=== PATIENT | female | born 1965 | race Two or more races ===

== ENCOUNTER 2016-08-21 17:32 | Emergency (ER) | payer SELFPAY ==
--- NOTE | 2016-08-21 17:54 | ER Document Report ---
ED Medical Screen (RME) - General Chief Complaint: Headache Stated Complaint: HEADACHE Time seen by provider: 17:52 Mode of Arrival: Ambulatory Information source: Patient Notes: 89-year-old female woke up with a throbbing pounding headache in the front and on the top of her head and week ago when she was in [place]. It has persisted and now was in [place] but the headache is now 3/5 because she's been taking aspirin. This is not a migraine. He suspects that this headache is due to high blood pressure which she has had a history of but she is no longer taking medicine. No Paresthesias or weakness. Physical Exam - Vital signs Vitals: Temp Pulse Resp BP Pulse Ox 98.4 F 91 16 158/82 H 99 08/21/16 17:50 08/21/16 17:50 08/21/16 17:50 08/21/16 17:50 08/21/16 17:50 Course - Vital Signs Vital signs: Temp Pulse Resp BP Pulse Ox 98.4 F 91 16 158/82 H 99 08/21/16 17:50 08/21/16 17:50 08/21/16 17:50 08/21/16 17:50 08/21/16 17:50
[2016-08-21 19:02] LABS: ABSOLUTE BASOPHILS # (AUTO) 0.1 10^3/uL (0.0-0.2); ABSOLUTE EOSINOPHILS # (AUTO) 0.1 10^3/uL (0.0-0.6); ABSOLUTE LYMPHOCYTES (AUTO) 2.2 10^3/uL (0.5-4.7); ABSOLUTE MONOCYTES (AUTO) 0.4 10^3/uL (0.1-1.4); ABSOLUTE NEUT (AUTO) 3.4 10^3/uL (1.7-8.2); BASOPHILS % (AUTO) 0.9 % (0-2); EOSINOPHILS % (AUTO) 1.5 % (0-6); HEMATOCRIT 35.2 % (36.0-47.0); HEMOGLOBIN 11.6 g/dL (12.0-15.5); HGB HCT DIFFERENCE -0.4; LYMPHOCYTES % (AUTO) 35.9 % (13-45); MEAN CORPUSCULAR HEMOGLOBIN 23.9 pg (27.0-33.4); MEAN CORPUSCULAR HGB CONC 32.9 g/dL (32.0-36.0); MEAN CORPUSCULAR VOLUME 73 fl (80-97); MONOCYTES % (AUTO) 6.7 % (3-13); RED BLOOD COUNT 4.82 10^6/uL (3.72-5.28); RED CELL DISTRIBUTION WIDTH 17.3 % (11.5-14.0); WHITE BLOOD COUNT 6.2 10^3/uL (4.0-10.5)
[2016-08-21 19:30] LABS: ALANINE AMINOTRANSFERASE 29 U/L (9-52); ALBUMIN 3.7 g/dL (3.5-5.0); ALKALINE PHOSPHATASE 66 U/L (38-126); ANION GAP 10 (5-19); ASPARTATE AMINO TRANSFERASE 21 U/L (14-36); BILIRUBIN,TOTAL 0.3 mg/dL (0.2-1.3); BLOOD UREA NITROGEN 12 mg/dL (7-20); CALCIUM 9.1 mg/dL (8.4-10.2); CARBON DIOXIDE 27 mmol/L (22-30); CHLORIDE 104 mmol/L (98-107); CREATININE RESULT 0.71 mg/dL (0.52-1.25); GLUCOSE 98 mg/dL (75-110); POTASSIUM 4.3 mmol/L (3.6-5.0); SODIUM 141.2 mmol/L (137-145)
--- NOTE | 2016-08-21 19:50 | ER Document Report ---
ED Headache <MATEO GALLAGHER - Last Filed: 08/21/16 21:13> - General Mode of Arrival: Ambulatory Information source: Patient TRAVEL OUTSIDE OF THE [place] IN LAST 30 DAYS: No - HPI Patient complains to provider of: Headache Onset: Other - 1 week ago Associated symptoms: Other - see above <DELGADILLOCHRISTY - Last Filed: 08/21/16 21:28> - General Chief Complaint: Headache Stated Complaint: HEADACHE Notes: 51 year old female with history of hypertension (was medicated, but now controlled via diet and exercise) presents to the ED complaining of a constant throbbing headache that started 1 week ago. Patient states that she initially woke up with the headache. For the past 5 days, the patient's headache was severe enough that all she wanted to do was "lay down." Patient explains that the headache is not as bad today as it was before. Patient's headache initially started at the top of her head and now presents as a frontal headache. Patient explains that sometimes the headache gets worse when leading her head forward. Patient denies double or blurry vision, trauma to the head, weakness, loss of consciousness, stiff neck, sore throat, ear ache, cough, fever, or trouble speaking. Patient states that she had a history of migraines, but hasn't had one in over 10 years. Patient denies any allergies or sinus infection. (CHRISTY DELGADILLO) - Related Data Allergies/Adverse Reactions: No Known Allergies Allergy (Unverified 08/21/16 17:56) Past Medical History - General Information source: Patient - Social History Smoking Status: Never Smoker Family History: Reviewed & Not Pertinent Patient has suicidal ideation: No Patient has homicidal ideation: No - Past Medical History Cardiac Medical History: Reports: Hx Hypertension Neurological Medical History: Reports: Hx Migraine - Last migraine 10+ years ago. Denies: Hx Seizures - Immunizations Hx Diphtheria, Pertussis, Tetanus Vaccination: No <CHRISTY DELGADILLO - Last Filed: 08/21/16 21:28> Review of Systems - Review of Systems Constitutional: No symptoms reported EENT: No symptoms reported. denies: Blurred vision, Double vision, Ear pain Cardiovascular: No symptoms reported Respiratory: No symptoms reported Gastrointestinal: No symptoms reported Genitourinary: No symptoms reported Female Genitourinary: No symptoms reported Musculoskeletal: No symptoms reported Skin: No symptoms reported Hematologic/Lymphatic: No symptoms reported Neurological/Psychological: See HPI, Headaches. denies: Weakness, Lost consciousness -: Yes All other systems reviewed and negative <CHRISTY DELGADILLO - Last Filed: 08/21/16 21:28> Physical Exam - Vital signs Interpretation: Normal - General General appearance: Alert In distress: None - HEENT Head: Normocephalic, Atraumatic Eyes: Normal Extraocular movements intact: Yes Pupils: PERRL - Respiratory Respiratory status: No respiratory distress Breath sounds: Normal - Cardiovascular Rhythm: Regular Heart sounds: Normal auscultation - Abdominal Inspection: Normal - Back Back: Normal - Extremities General upper extremity: Normal inspection, Normal ROM General lower extremity: Normal inspection, Normal ROM - Neurological Neuro grossly intact: Yes Cognition: Normal Orientation: AAOx4 [place] Coma Scale Eye Opening: Spontaneous Jj Coma Scale Verbal: Oriented [place] Coma Scale Motor: Obeys Commands [place] Coma Scale Total: 15 Speech: Normal - Psychological Associated symptoms: Normal affect, Normal mood - Skin Skin Temperature: Warm Skin Moisture: Dry Skin Color: Normal <CHRISTY DELGADILLO - Last Filed: 08/21/16 21:28> - Vital signs Vitals: Temp Pulse Resp BP Pulse Ox 98.4 F 91 16 158/82 H 99 08/21/16 17:50 08/21/16 17:50 08/21/16 17:50 08/21/16 17:50 08/21/16 17:50 (MATEO GALLAGHER) Course - Laboratory Result Diagrams: 08/21/16 18:47 08/21/16 18:47 <MATEO GALLAGHER - Last Filed: 08/21/16 21:13> - Laboratory Result Diagrams: 08/21/16 18:47 08/21/16 18:47 <CHRISTY DELGADILLO - Last Filed: 08/21/16 21:28> - Re-evaluation Re-evalutation: 08/21/16 20:55 I personally performed the services described in the documentation, reviewed and edited the documentation which was dictated to my scribe in my presence, and it accurately records my words and actions. patient presents emergency per chief plain a headache. Patient says for the past week she had a gradual onset of frontal headache which was stabbing in nature that she woke up with. She denies a history of trauma. She has a history of migraines years ago but says it doesn't feel similar. She thought it may be due to elevated blood pressure. [place] taking blood pressure medication for a prolonged period of time before she lost 30 pounds and then said she was taken off of it. She has no history of stroke or mini stroke family history or history of aneurysm. She does not describe this as a worst headache of her life. It is not associated with blurred vision or double vision. She denies any sinus congestion visual changes earache sore throat cough neck pain stiffness or fever. She has any chest pain shortness of breath numbness tingling weakness difficulty with speech mental status or neurological deficits. On examination blood pressure is 158/82 she is well- appearing nontoxic in no acute distress pupils are equal at by bilaterally x- ray was intact mucous murmurs moist trach is midline neck is supple heart rate and rhythm regular lungs are clear abdomen is soft no focal neurological deficits normal ambulation. No acute clinical concerns for TIA or CVA. Negative CT the head for acute bleed or obvious mass or midline shift. Patient states her headache is very mild currently. Discussed with her that I cannot contribute headaches to elevated blood pressure I'm going to give her the clinic to follow-up in terms of monitoring and managing her blood pressure. She certainly does not need any acute blood pressure management in the emergency department. At this time she did not want to take anything for her headache. She is to be discharge follow-up with the clinic in 1-2 days monitor blood pressure and discussed reasons for ED return sooner 08/21/16 21:14 Long discussion with patient and family member at the bedside states she had a history of high blood pressure for which she was taking medication but then lost 35 pounds and took herself off of it. Blood pressure is elevated here cannot state whether or not that is causing her headaches. However recommending close follow-up assessment of blood pressure and determination whether she needs be placed back on blood pressure medication for this reason I gave her the clinic for 1-2 day follow-up and discuss reasons for ED return sooner (MATEO GALLAGHER) - Vital Signs Vital signs: Temp Pulse Resp BP Pulse Ox 98.8 F 85 14 174/98 H 96 08/21/16 20:52 08/21/16 20:52 08/21/16 20:52 08/21/16 20:52 08/21/16 20:52 (MATEO GALLAGHER) (CHRISTY DELGADILLO) - Laboratory Laboratory results interpreted by me: 08/21/16 18:47 Hgb 11.6 L Hct 35.2 L MCV 73 L MCH 23.9 L RDW 17.3 H (MATEO GALLAGHER) (CHRISTY DELGADILLO) Scribe Documentation - Scribe Written by Danisha:: Danisha Phan, 08/21/2016 21:28 acting as scribe for :: Javed <CHRISTY DELGADILLO - Last Filed: 08/21/16 21:28>
[2016-08-21 21:22] VITALS: BP 174/98
--- NOTE | 2016-08-30 20:28 | ER Document Report ---
Doctor's Note Notes: 08/30/16 20:27 diagnosis 1. acute on chronic cephalgia 2. hypertension noncompliant on blood pressure medication
== END 2016-08-21 21:23 | disposition home or self-care (01) ==
LOC: ER 17:32
DX: G44.89 Other headache syndrome (principal); I10 Essential (primary) hypertension; Z91.14 Patient's other noncompliance with medication regimen
CPT/HCPCS: 36415; 70450; 80053; 85025; 99284